=== PATIENT | female | born 1965 | race Caucasian/White ===

== ENCOUNTER 2018-01-20 20:03 | Emergency (ER) | payer OTHER ==
[~2018-01-20] VITALS: Ht 162.6 cm; Wt 72.6 kg
[~2018-01-20 20:03] MED LIST: ALBU90OI INH; AMOX500 PO; CLIN150 PO; Crutch1 EACH MISC; HYDACE5 PO; IBUP600 PO; LEVO750 PO; MARAJUANA; Norco 5-325 Ta1 EACH PO; ONDA4ODT MM; OXYACE5T PO; PHENA200 PO; PRED20 PO; PROM25 PO; [UNRECOGNIZED DRUG - OTHER]
[2018-01-20] MEDS ORDERED: LOVA40 PO (20:17)
[2018-01-20] MEDS ORDERED: CYCL10 PO (20:47)
== END 2018-01-20 21:26 | disposition home or self-care (01) ==
LOC: ER 20:03
DX: M54.5 Low back pain (principal); I10 Essential (primary) hypertension; Z79.899 Other long term (current) drug therapy
CPT/HCPCS: 96372; 99283; J1885

== ENCOUNTER 2018-03-13 06:54 | Day surgery (SDC) | payer OTHER ==
[~2018-03-13] VITALS: Ht 162.6 cm; Wt 77.6 kg
[~2018-03-13 06:54] MED LIST changes: +CYCL10 PO; +LOVA40 PO; +PROP10 PO
== END 2018-03-13 22:49 | disposition home or self-care (01) ==
LOC: ORSCMMR 06:54 → ORD 08:00 → ORSCMMR 22:49
PROVIDERS: Internal Medicine Gastroenterology
PROC: 0DBL8ZX Excision of Transverse Colon, Via Natural or Artificial Opening Endoscopic, Diagnostic (ICD-10-PCS; principal; 2018-03-13 08:00)
PROC: 0DBK8ZX Excision of Ascending Colon, Via Natural or Artificial Opening Endoscopic, Diagnostic (ICD-10-PCS; principal; 2018-03-13 08:00)
PROC: 0DBB8ZX Excision of Ileum, Via Natural or Artificial Opening Endoscopic, Diagnostic (ICD-10-PCS; principal; 2018-03-13 08:00)
PROC: 0DBN8ZX Excision of Sigmoid Colon, Via Natural or Artificial Opening Endoscopic, Diagnostic (ICD-10-PCS; principal; 2018-03-13 08:00)
DX: K62.5 Hemorrhage of anus and rectum (principal); D12.2 Benign neoplasm of ascending colon; D12.3 Benign neoplasm of transverse colon; D12.5 Benign neoplasm of sigmoid colon; I10 Essential (primary) hypertension; E78.00 Pure hypercholesterolemia, unspecified; Z87.891 Personal history of nicotine dependence
CPT/HCPCS: J2250; J7120

== ENCOUNTER → 2020-10-08 | Outpatient (CLI) | payer OTHER | LOC: LAB SHORT 09:40 → LAB 09:40 | DX: M54.5 Low back pain (principal) | CPT/HCPCS: 82550 ==

== ENCOUNTER 2021-09-14 10:44 | Emergency (ER) | payer OTHER ==
[~2021-09-14] VITALS: Ht 160 cm; Wt 65.8 kg
== END 2021-09-14 12:08 | disposition home or self-care (01) ==
LOC: ER 10:44
DX: K04.7 Periapical abscess without sinus (principal); I10 Essential (primary) hypertension; Z79.899 Other long term (current) drug therapy
CPT/HCPCS: 99283; A9270

== ENCOUNTER → 2024-12-10 | Outpatient (CLI) | payer OTHER ==
[2024-12-10 18:32] LABS: Bacterial Vaginosis PCR Negative (NEGATIVE); Candida Group, PCR NOT DETECTED (NOT DETECT); Candida glabrata-krusei, PCR NOT DETECTED (NOT DETECT)
[2024-12-13 11:46] LABS: HPV HIGH RISK BY TMA Not Detected; HPV SOURCE Not Provided
== END ==
LOC: LAB SHORT 15:48 → LAB 15:48
PROVIDERS: General Practice
DX: Z01.419 Encounter for gynecological examination (general) (routine) without abnormal findings (principal)
CPT/HCPCS: 81515; 87624; G0123